=== PATIENT | male | born 1965 | race Hispanic/Latino ===

== ENCOUNTER 2016-05-21 10:05 | Day surgery (SDC) | payer OTHER ==
[~2016-05-21] VITALS: Ht 172.7 cm; Wt 63.5 kg
== END 2016-05-21 12:10 | disposition home or self-care (01) ==
LOC: OR 10:05
PROC: 0HQDXZZ Repair Right Lower Arm Skin, External Approach (ICD-10-PCS; principal; 2016-05-21)
PROC: 0JCG0ZZ Extirpation of Matter from Right Lower Arm Subcutaneous Tissue and Fascia, Open Approach (ICD-10-PCS; 2016-05-21)
DX: S61.521A Laceration with foreign body of right wrist, initial encounter (principal); W01.190A Fall on same level from slipping, tripping and stumbling with subsequent striking against furniture, initial encounter; Y92.098 Other place in other non-institutional residence as the place of occurrence of the external cause
CPT/HCPCS: 36415; 80320; 99283; J0690; J2001; J2250; J2704; J3490

== ENCOUNTER 2017-02-24 19:41 | Emergency (ER) | payer OTHER ==
[~2017-02-24] VITALS: Ht 172.7 cm; Wt 70.3 kg
[2017-02-24 20:45] LABS: PLATELET COUNT 187 K/uL (142-355)
[2017-02-24 20:54] LABS: POTASSIUM 3.8 mmol/L (3.6-5.2); SODIUM 133 mmol/L (136-145)
[2017-02-24 21:40] VITALS: BP 1128/71; TEMP 98.3
== END 2017-02-24 21:50 | disposition home or self-care (01) ==
LOC: ED 19:41
PROVIDERS: Specialist
DX: R07.89 Other chest pain (principal)
CPT/HCPCS: 36415; 80048; 82550; 82553; 84484; 85027; 93005; 96374; 99284; J1885

== ENCOUNTER 2019-05-12 18:20 | Emergency (ER) | payer OTHER ==
[~2019-05-12] VITALS: Ht 172.7 cm; Wt 63.5 kg
[2019-05-12 18:30] VITALS: BP 135/87; TEMP 98.1
== END 2019-05-12 19:27 | disposition home or self-care (01) ==
LOC: ED 18:20
DX: S91.332A Puncture wound without foreign body, left foot, initial encounter (principal); W27.3XXA Contact with needle (sewing), initial encounter; Y93.H9 Activity, other involving exterior property and land maintenance, building and construction; Y92.096 Garden or yard of other non-institutional residence as the place of occurrence of the external cause
CPT/HCPCS: 99282

== ENCOUNTER 2019-09-13 07:58 | Day surgery (SDC) | payer OTHER ==
[2019-09-13 08:59] LABS: POTASSIUM 4.2 mmol/L (3.6-5.2)
[2019-09-13 09:11] LABS: PLATELET COUNT 177 K/uL (142-355)
== END 2019-09-13 13:16 | disposition home or self-care (01) ==
LOC: OR 07:58
PROVIDERS: Student in an Organized Health Care Education/Training Program
PROC: 0HQMXZZ Repair Right Foot Skin, External Approach (ICD-10-PCS; principal; 2019-09-13)
PROC: 0HBMXZZ Excision of Right Foot Skin, External Approach (ICD-10-PCS; 2019-09-13)
DX: L72.0 Epidermal cyst (principal)
CPT/HCPCS: 80053; 85027; J0690; J2704; J3010; J3490